=== PATIENT | female | born 1950 | race Caucasian/White ===

== ENCOUNTER → 2017-10-17 | Outpatient (CLI) | payer MEDICARE ==
[~2017-10-17] MED LIST: AMLO10 PO; AMLO5TAB2 PO; CLAR10CA3 PO; DAILTAB38 PO; DILA2TAB4 PO; ESTR42.5V VAGINAL; HYDR-3583 PO; HYDR10TA16 PO; OMEP20TA93 PO; OXYB10TA PO; OXYB5TAB PO; REST0.05 EACH EYE; ROBA500T PO; ROSU1TAB8 PO; ROSU40 PO; TAB-TAB PO; TELM1TAB2 PO; VITA500T83 PO; WAL-10TA2 PO; WALKER WHEELS/F1 MIS
[2017-10-17 10:08] LABS: AUTOMATED NEUTROPHIL # 2.9 TH/MM3 (1.8-7.7); BASOPHIL % 0.7 % (0.0-2.0); EOSINOPHIL # 0.1 TH/MM3 (0-0.4); EOSINOPHIL % 2.6 % (0.0-4.0); HEMATOCRIT 43.6 % (35.0-46.0); HEMOGLOBIN 14.8 GM/DL (11.6-15.3); LYMPH % 26.9 % (9.0-44.0); LYMPHOCYTE # 1.3 TH/MM3 (1.0-4.8); MEAN CELL VOLUME 94.3 FL (80.0-100.0); MEAN PLATELET VOLUME 8.2 FL (7.0-11.0); MONO % 11.7 % (0.0-8.0); MONOCYTE # 0.6 TH/MM3 (0-0.9); NEUT % 58.1 % (16.0-70.0); PLATELET COUNT 192 TH/MM3 (150-450); RED BLOOD COUNT 4.62 MIL/MM3 (4.00-5.30); RED CELL DISTRIBUTION WIDTH 13.1 % (11.6-17.2); WHITE BLOOD COUNT 4.9 TH/MM3 (4.0-11.0)
[2017-10-17 10:26] LABS: PROTHROMBIN TIME - PATIENT 10.2 SEC (9.8-11.6)
[2017-10-17 10:28] LABS: BICARBONATE 27.1 MEQ/L (21.0-32.0); CALCIUM 9.5 MG/DL (8.5-10.1); CREATININE 0.9 MG/DL (0.50-1.00)
--- NOTE | 2017-10-17 11:40 | EKG ---
Date Performed: 10/17/2017 Time Performed: 09:28:07 PTAGE: 66 years EKG: Sinus rhythm NORMAL ECG No significant change from prior electrocardiogram. DOCTOR: Mode Garland Interpretating Date/Time 10/17/2017 11:38:31
--- NOTE | 2017-10-17 12:07 | RADRPT ---
EXAM DATE/TIME: 10/17/2017 10:15 [facility] COMPARISON: CHEST PA & LAT, November 22, 2011, 12:31. INDICATIONS : Evaluate for pneumonia, pneumothorax, or communicable disease. Pre op for lumbar surgery. MEDICAL HISTORY : Hypertension. SURGICAL HISTORY : Lumbar laminectomy. ENCOUNTER: Initial ACUITY: 1 day PAIN SCORE: 0/10 LOCATION: Bilateral chest FINDINGS: PA and lateral views of the chest demonstrate the lungs to be symmetrically aerated without evidence of mass, infiltrate or effusion. The cardiomediastinal contours are unremarkable. Osseous structure s are intact. CONCLUSION: 1. No acute cardiopulmonary disease. Greg Burns MD on October 17, 2017 at 12:04 Board Certified Radiologist. This report was verified electronically.
== END ==
LOC: CPRE 09:01
PROVIDERS: ATTEND Neurological Surgery
DX: Z01.812 Encounter for preprocedural laboratory examination (principal); Z01.811 Encounter for preprocedural respiratory examination; Z01.810 Encounter for preprocedural cardiovascular examination; M43.16 Spondylolisthesis, lumbar region; M48.061 Spinal stenosis, lumbar region without neurogenic claudication; M54.16 Radiculopathy, lumbar region
CPT/HCPCS: 36415; 71046; 80048; 85025; 85610; 85730; 87640; 87641; 93005

== ENCOUNTER → 2017-10-18 | Outpatient (CLI) | payer MEDICARE | LOC: CPRE 12:50 | PROVIDERS: ATTEND Neurological Surgery | DX: Z01.812 Encounter for preprocedural laboratory examination (principal); M79.609 Pain in unspecified limb; M43.16 Spondylolisthesis, lumbar region; M48.061 Spinal stenosis, lumbar region without neurogenic claudication; M54.16 Radiculopathy, lumbar region | CPT/HCPCS: 87640; 87641 ==

== ENCOUNTER 2017-10-23 06:38 | Inpatient (IN) | payer MEDICARE ==
[~2017-10-23] VITALS: Ht 162.6 cm; Wt 70.0 kg
[~2017-10-23 06:38] MED LIST changes: -AMLO10 PO; -DILA2TAB4 PO; -HYDR-3583 PO; -HYDR10TA16 PO; -OXYB5TAB PO; -ROBA500T PO; -ROSU40 PO; -TAB-TAB PO; -WAL-10TA2 PO; -WALKER WHEELS/F1 MIS
[2017-10-23] MEDS ORDERED: LIDOCAINE 1%/EPINEPHrine 1:100,000 SOLN 30 ML VIAL ONE (06:51)
[2017-10-23] MEDS ORDERED: HEPARIN SODIUM - SQ 10,000 UNITS/ML VIAL ONE (06:51)
[2017-10-23] MEDS ORDERED: GENTAMICIN SULFATE 80 MG/2 ML VIAL ONE (06:52)
[2017-10-23] MEDS ORDERED: BUPIVACAINE HCL PF 0.25% 30 ML VIAL ONE (06:52)
[2017-10-23] MEDS ORDERED: THROMBIN (TOPICAL) 5,000 UNIT VIAL ONE (06:52)
[2017-10-23] MEDS ORDERED: GELFOAM SIZE 100 ONE (06:52)
[2017-10-23] MEDS ORDERED: DEXMEDETOMIDINE HCL 200 MCG/2 ML VIAL ONE (06:53)
[2017-10-23] MEDS ORDERED: KETAMINE HCL 500 MG/10 ML VIAL ONE (06:54)
[2017-10-23] MEDS ORDERED: PROPOFOL 500 MG/50 ML INJ 100 ML ONE (06:56)
[2017-10-23] MEDS ORDERED: ceFAZolin 1,000 MG/NS 100 ML IV SCH ×2 (07:00)
[2017-10-23] MEDS ORDERED: POVIDONE IODINE 5% (ANTISEPSIS KIT) 4 APPLICATIONS EACH NARE PRN (07:00)
[2017-10-23] MEDS ORDERED: SODIUM CHLORID 0.9% 500 ML IV PRN (07:00)
[2017-10-23] MEDS ORDERED: LACTATED RINGER'S 1000 ML IV PRN (07:00)
[2017-10-23] MEDS ORDERED: METOPROLOL TARTRATE 25 MG TAB PO PRN (07:00)
[2017-10-23] MEDS ORDERED: CHLORHEXIDINE GLUCONATE 2 % 1 PACK (2 CLOTHS) TOPICAL PRN (07:00)
[2017-10-23] MEDS: LACTATED RINGER'S 1000 ML INJ 1,000 ML IV SCH (07:00)
[2017-10-23] MEDS ORDERED: ACETAMINOPHEN 1000 MG/100 ML 100 ML IV ONE (07:04)
[2017-10-23] MEDS ORDERED: APREPITANT 40 MG CAP ONE (07:29)
[2017-10-23] MEDS ORDERED: ceFAZolin INJ 1,000 MG VIAL ONE (07:38)
[2017-10-23] MEDS ORDERED: BUPIVACAINE LIPOSOME PF 1.3% 20 ML VIAL ONE (07:52)
[2017-10-23] MEDS ORDERED: PROPOFOL 500 MG/50 ML INJ 50 ML ONE ×2 (11:55→13:07)
[2017-10-23] MEDS ORDERED: SODIUM CHLOR 0.9% 250 ML INJ 250 ML IV ONE (12:00)
[2017-10-23] MEDS ORDERED: ePHEDrine/NS 25 MG/5 ML SYRINGE IV ONE (12:00)
[2017-10-23] MEDS ORDERED: LACTATED RINGER'S 1000 ML INJ 2,000 ML IV ONE (12:00)
[2017-10-23] MEDS ORDERED: NEOSTIGMINE 5 MG/5 ML SYRINGE IV PUSH ONE (12:00)
[2017-10-23] MEDS ORDERED: DEXAMETHASONE SOD PHOS 4 MG/ML VIAL IV ONE (12:00)
[2017-10-23] MEDS ORDERED: LIDOCAINE HCL 1% PF 5 ML SYRINGE OTHER ONE (12:00)
[2017-10-23] MEDS ORDERED: GLYCOPYRROLATE 1 MG/5 ML SYRINGE IV PUSH ONE (12:00)
[2017-10-23] MEDS ORDERED: ROCURONIUM INJ 50 MG/5 ML SYRINGE IV PUSH ONE (12:00)
[2017-10-23] MEDS ORDERED: PHENYLEPH/NS 1000 MCG/10 ML SYR IV ONE (12:00)
[2017-10-23] MEDS ORDERED: ceFAZolin INJ 1,000 MG VIAL IV ONE (12:00)
[2017-10-23] MEDS ORDERED: PHENYLEPHRINE HCL 10 MG/ML VIAL IV ONE (12:00)
[2017-10-23] MEDS ORDERED: ONDANSETRON HCL 4 MG/2 ML VIAL IV ONE (12:00)
[2017-10-23] MEDS ORDERED: PROPOFOL 200 MG/20 ML AMP IV ONE (12:00)
[2017-10-23] MEDS ORDERED: BUPIVACAINE LIPOSOME PF 1.3% 20 ML VIAL INFIL ONE (14:08)
--- NOTE | 2017-10-23 14:24 | RADRPT ---
EXAM DATE/TIME: 10/23/2017 09:39 [facility] COMPARISON: No previous studies available for comparison. INDICATIONS : L4/5 laminectomy, diskectomy, and interbody fusion. MEDICAL HISTORY : Unobtainable. SURGICAL HISTORY : Unobtainable. ENCOUNTER: Initial ACUITY: 1 day PAIN SCORE: Non-responsive. LOCATION: Lumbar spine. FINDINGS: AP and lateral fluoroscopic views of the lower lumbar spine. Posterior luis and transpedicular screws are noted at L4-5 presuming 5 lumbar-type vertebral bodies. There is also interbody spacer at L4-5. M ild anterolisthesis of L4 on L5. Hardware appears well-positioned. The visualized vertebral bodies ar e intact. CONCLUSION: 1. Status post interbody and post L4-5 transpedicular screw and luis fixation, as above. Tiburcio Harding MD on October 23, 2017 at 14:17 Board Certified Radiologist. This report was verified electronically.
[2017-10-23] MEDS ORDERED: DO NOT ADM ANY ANTICOAGULANT DRUGS PRN (15:03)
[2017-10-23] MEDS ORDERED: MIDAZOLAM HCL 2 MG/2 ML VIAL ONE (15:06)
[2017-10-23] MEDS ORDERED: MAGNESIUM HYDROXIDE SUSP 30 ML CUP PO PRN (16:15)
[2017-10-23] MEDS ORDERED: ACETAMINOPHEN/HYDROcodone 325 MG/5 MG TAB PO PRN (16:15)
[2017-10-23] MEDS ORDERED: BISACODYL 10 MG SUPP RECTAL PRN (16:15)
[2017-10-23] MEDS ORDERED: *morphine SULFATE 4 MG/ML PERIprocedure ONLY ONE ×2 (16:27→16:50)
[2017-10-23] MEDS ORDERED: DIMETHICONE/OXYBENZONE/PADMIATE LIP BALM 4.25 GM TOPICAL ONE (16:48)
[2017-10-23] MEDS: SODIUM CHLOR 0.9% 1000 ML INJ 1,000 ML IV SCH (17:20)
[2017-10-23 18:30] VITALS: BP 104/55; PULSE 81; RESP 17; TEMP 98.3; O2SAT 96
[2017-10-23] MEDS ORDERED: DIMETHICONE/OXYBENZONE/PADMIATE LIP BALM 4.25 GM TOPICAL PRN (18:30)
--- NOTE | 2017-10-23 20:58 | PD.OP ---
Operative Report Date of Surgery: Oct 23, 2017 Preoperative Diagnosis: (1) Spondylolisthesis of lumbar region Postoperative Diagnosis: (1) Spondylolisthesis of lumbar region Procedure: Left L4-5 laminectomy facetectomy L4-5- Discectomy, Interbody fusion Autograft and DBM, PEEK cage Bilateral L4-5 posterior instrumention with pedicle screw fixation Repair left L4-5 dural tear Anesthesia: General Surgeon: Rajesh Johnston Talent Manager(s): Cristy Hamilton Operation and Findings: Findings : Very thin dura left L4-5 thecal sack Poor bone integrity suggestive of osteoporosis EBL 150cc Rajesh Johnston MD Oct 23, 2017 20:58
[2017-10-23] MEDS: DOCUSATE SODIUM 100 MG CAP PO SCH (22:16)
[2017-10-23] MEDS: OXYBUTYNIN CHLORIDE 5 MG TAB PO SCH (22:16)
[2017-10-23] MEDS: MORPHINE SULFATE 2 MG/ML SYRINGE IV PUSH PRN (22:16)
[2017-10-23 22:56] VITALS: BP 115/62; PULSE 81; RESP 18; TEMP 98; O2SAT 96
[2017-10-24] MEDS: KETOROLAC TROMETHAMINE 30 MG/ML (IVP) VIAL IV PUSH SCH ×4 (00:05→17:13)
[2017-10-24] MEDS: SODIUM CHLOR 0.9% 1000 ML INJ 1,000 ML IV SCH ×3 (03:12→21:58)
[2017-10-24] MEDS: MORPHINE SULFATE 2 MG/ML SYRINGE IV PUSH PRN ×2 (03:12→11:23)
[2017-10-24 06:08] VITALS: BP 93/54; PULSE 93; RESP 20; TEMP 98.6; O2SAT 98
[2017-10-24] MEDS: LACTATED RINGER'S 1000 ML INJ 1,000 ML IV SCH (07:00)
[2017-10-24 08:07] VITALS: BP 110/59; PULSE 86; RESP 17; TEMP 98.2; O2SAT 95
[2017-10-24] MEDS: LOSARTAN 50 MG TAB PO SCH (08:30)
[2017-10-24] MEDS: ACETAMINOPHEN/HYDROcodone 325 MG/10 MG TAB PO PRN ×2 (08:31→17:13)
[2017-10-24] MEDS: DOCUSATE SODIUM 100 MG CAP PO SCH ×2 (08:32→21:55)
[2017-10-24] MEDS: OXYBUTYNIN CHLORIDE 5 MG TAB PO SCH ×2 (08:32→21:55)
[2017-10-24] MEDS: amLODIPine BESYLATE 5 MG TAB PO SCH (08:32)
[2017-10-24] MEDS: MULTIVITAMIN TAB PO SCH (08:32)
[2017-10-24] MEDS: PANTOPRAZOLE SOD 20 MG DELAYED RELEASE TAB PO SCH (08:32)
[2017-10-24] MEDS: LORATADINE 10 MG TAB PO SCH (08:32)
[2017-10-24] MEDS ORDERED: MULTIPLE VITAMIN PO SCH (09:00)
[2017-10-24] MEDS ORDERED: NON-FORMULARY DRUG (Omeprazole 20 MG) PO SCH (09:00)
[2017-10-24] MEDS ORDERED: CYCLOSPORINE OPTH EACH EYE SCH (09:00)
[2017-10-24] MEDS ORDERED: TELMISARTAN 80 MG PO SCH (09:00)
[2017-10-24] MEDS ORDERED: PT:RESTASIS OPTH SOL EACH EYE SCH (09:00)
[2017-10-24 11:52] VITALS: BP 122/56; PULSE 83; RESP 18; TEMP 98.2; O2SAT 94
[2017-10-24 16:05] VITALS: BP 119/55; PULSE 74; RESP 17; TEMP 97.6; O2SAT 94
[2017-10-24 20:00] VITALS: BP 156/68; PULSE 74; RESP 16; TEMP 98; O2SAT 100
[2017-10-24] MEDS ORDERED: ESTRADIOL 0.1 MG/GM VAG CREAM 42.5 GM VAGINAL SCH (21:00)
[2017-10-24] MEDS: HYDROmorphone HCL 2 MG TAB PO PRN (21:55)
[2017-10-25] VITALS: BP 94/49; PULSE 67; RESP 18; TEMP 98.5; O2SAT 93
[2017-10-25] MEDS: KETOROLAC TROMETHAMINE 30 MG/ML (IVP) VIAL IV PUSH SCH ×3 (00:05→12:00)
[2017-10-25 04:00] VITALS: BP 103/51; PULSE 70; RESP 18; TEMP 98.5; O2SAT 93
[2017-10-25] MEDS: HYDROmorphone HCL 2 MG TAB PO PRN ×2 (04:58→10:37)
[2017-10-25] MEDS: LACTATED RINGER'S 1000 ML INJ 1,000 ML IV SCH (06:27)
[2017-10-25 07:44] VITALS: BP 107/52; PULSE 66; RESP 18; TEMP 99.5; O2SAT 95
[2017-10-25] MEDS: PANTOPRAZOLE SOD 20 MG DELAYED RELEASE TAB PO SCH (08:35)
[2017-10-25] MEDS: LORATADINE 10 MG TAB PO SCH (08:36)
[2017-10-25] MEDS: DOCUSATE SODIUM 100 MG CAP PO SCH (08:36)
[2017-10-25] MEDS: LOSARTAN 50 MG TAB PO SCH (08:36)
[2017-10-25] MEDS: amLODIPine BESYLATE 5 MG TAB PO SCH (08:36)
[2017-10-25] MEDS: OXYBUTYNIN CHLORIDE 5 MG TAB PO SCH (08:36)
[2017-10-25] MEDS: MULTIVITAMIN TAB PO SCH (08:36)
--- NOTE | 2017-10-25 09:31 | HHI.DCPOC ---
Discharge Care Plan Your Health Problems Are: Difficulty with ADL Incision/Drains Exercise Tolerance Chronic Pain Goals to Promote Your Health * To prevent worsening of your condition and complications * To maintain your health at the optimal level Directions to Meet Your Goals Take your medications as prescribed Follow your dietary instruction Follow activity as directed Keep your appointments as scheduled Take your immunizations and boosters as scheduled If your symptoms worsen call your PCP, if no PCP go to Urgent Care Center or Emergency Room Smoking is Dangerous to Your Health. Avoid second hand smoke Call the 24-hour hour crisis hotline for domestic abuse at Rajesh Johnston MD Oct 25, 2017 09:31
[2017-10-25] MEDS ORDERED: DILA2TAB4 PO (09:34)
[2017-10-25] MEDS ORDERED: HYDR-3583 PO (09:34)
[2017-10-25] MEDS ORDERED: ROBA500T PO (09:34)
[2017-10-25] MEDS ORDERED: WALKER WHEELS/F1 MIS (09:35)
[2017-10-25] MEDS: SODIUM CHLOR 0.9% 1000 ML INJ 1,000 ML IV SCH (10:30)
[2017-10-25] MEDS: ACETAMINOPHEN/HYDROcodone 325 MG/10 MG TAB PO PRN (13:05)
== END 2017-10-25 13:22 | disposition home or self-care (01) | DRG 460 ==
LOC: HSDI 06:38 → INTOOBSV 06:38 → N06B 18:09 → OBSVTOIN 10-24 17:03
PROVIDERS: ADMIT Neurological Surgery; ATTEND Neurological Surgery
PROC: 0SB20ZZ Excision of Lumbar Vertebral Disc, Open Approach (ICD-10-PCS; 2017-10-23)
PROC: 00QT0ZZ Repair Spinal Meninges, Open Approach (ICD-10-PCS; 2017-10-23)
PROC: 0SG00AJ Fusion of Lumbar Vertebral Joint with Interbody Fusion Device, Posterior Approach, Anterior Column, Open Approach (ICD-10-PCS; principal; 2017-10-23 08:33)
DX: M43.16 Spondylolisthesis, lumbar region (principal); I10 Essential (primary) hypertension; M48.061 Spinal stenosis, lumbar region without neurogenic claudication; M54.16 Radiculopathy, lumbar region
CPT/HCPCS: 72100; 76000; 86850; 86900; 86901; 94150; C1713; C9290; J0131; J0690; J1100; J1580; J1644; J1885; J2250; J2270; J2370; J2405; J2710; J7030; J7050; J7120; J8501; L0484